=== PATIENT | female | born 1980 | race African-American/Black ===

== ENCOUNTER 2017-11-08 16:36 | Emergency (ER) | payer MEDICAID, MEDICARE ==
[~2017-11-08] VITALS: Ht 160 cm; Wt 103.8 kg
[~2017-11-08 16:36] MED LIST: PRED20 PO
[2017-11-08 16:46] VITALS: BP 159/85; PULSE 77; RESP 16; TEMP 99.2; O2SAT 97
--- NOTE | 2017-11-08 17:05 | PD ---
HPI Chief Complaint: Flank/Kidney Pain Time Seen by Provider: 16:56 Travel History International Travel<30 days: No Contact w/Intl Traveler<30days: No Traveled to known affect area: No History of Present Illness HPI This is a 37-year-old female who presents to the emergency department with left- sided flank pain, constant, moderate severity has been going on for 1 week, radiating into her left groin associated with some cloudy urine. She denies any fevers or chills. She has felt nauseous but has not vomited. She denies any vaginal discharge. [facility] Past Medical History Medical History: Denies Significant Hx High Cholesterol: Yes Diminished Hearing: No Influenza Vaccination: No ?: Not LMP: October Past Surgical History Surgical History: No Previous Surgery Social History Alcohol Use: No Tobacco Use: No Substance Use: No Allergies-Medications (Allergen,Severity, Reaction): Coded Allergies: No Known Allergies (Unverified Adverse Reaction, Unknown, 11/08/17) Reported Meds & Prescriptions Reported Meds & Active Scripts Active No Active Prescriptions or Reported Medications Review of Systems Except as stated in HPI: all other systems reviewed are Neg Physical Exam Narrative GENERAL:Well appearing, no acute distress SKIN: Focused skin assessment warm and dry. HEAD: Atraumatic. Normocephalic. EYES: Pupils equal and round. No injection or drainage. ENT: Moist mucous membranes NECK: Trachea midline. CARDIOVASCULAR: Regular rate and rhythm. No murmur appreciated. RESPIRATORY: Clear to auscultation. Breath sounds equal bilaterally. GASTROINTESTINAL: Abdomen soft, tender to palpation in the left upper and left lower quadrant with no rebound or guarding. : Left CVA tenderness. VIDEOTAPE EDITOR: cervix is normal in appearance, lumpy masses appreciated in the uterus MUSCULOSKELETAL: No obvious deformities. NEUROLOGICAL: Awake and alert. No obvious cranial nerve deficits. Moving all extremities. PSYCHIATRIC: Appropriate mood and affect; insight and judgment normal. Data Data Last Documented VS Vital Signs Date Time Temp Pulse Resp B/P (MAP) Pulse Ox O2 Delivery O2 Flow Rate FiO2 11/08/17 18:59 16 11/08/17 16:46 99.2 77 159/85 (109) 97 Orders Orders Complete Blood Count With Diff (11/08/17 17:03) Comprehensive Metabolic Panel (11/08/17 17:03) ^ Insert Iv (11/08/17 17:03) Ct Abd/Pel W/O Iv Contrast (11/08/17 ) Ed Urine Pregnancytest Poc (11/08/17 17:03) Ketorolac Inj (Toradol Inj) (11/08/17 17:15) Urinalysis - C+S If Indicated (11/08/17 17:58) Labs Laboratory Tests Test 11/08/17 17:20 11/08/17 18:30 White Blood Count 6.4 TH/MM3 Red Blood Count 4.62 MIL/MM3 Hemoglobin 12.7 GM/DL Hematocrit 37.7 % Mean Corpuscular Volume 81.6 FL Mean Corpuscular Hemoglobin 27.5 PG Mean Corpuscular Hemoglobin Concent 33.7 % Red Cell Distribution Width 13.5 % Platelet Count 315 TH/MM3 Mean Platelet Volume 7.7 FL Neutrophils (%) (Auto) 60.6 % Lymphocytes (%) (Auto) 30.4 % Monocytes (%) (Auto) 5.3 % Eosinophils (%) (Auto) 1.6 % Basophils (%) (Auto) 2.1 % Neutrophils # (Auto) 3.9 TH/MM3 Lymphocytes # (Auto) 2.0 TH/MM3 Monocytes # (Auto) 0.3 TH/MM3 Eosinophils # (Auto) 0.1 TH/MM3 Basophils # (Auto) 0.1 TH/MM3 CBC Comment DIFF FINAL Differential Comment Blood Urea Nitrogen 16 MG/DL Creatinine 0.76 MG/DL Random Glucose 97 MG/DL Total Protein 7.0 GM/DL Albumin 2.9 GM/DL Calcium Level 8.9 MG/DL Alkaline Phosphatase 68 U/L Aspartate Amino Transf (AST/SGOT) 23 U/L Alanine Aminotransferase (ALT/SGPT) 24 U/L Total Bilirubin 0.3 MG/DL Sodium Level 140 MEQ/L Potassium Level 4.5 MEQ/L Chloride Level 109 MEQ/L Carbon Dioxide Level 27.3 MEQ/L Anion Gap 4 MEQ/L Estimat Glomerular Filtration Rate 105 ML/MIN Urine Color YELLOW Urine Turbidity SL CLOUDY Urine pH 7.5 Urine Specific [place] 1.020 Urine Protein TRACE mg/dL Urine Glucose (UA) NEG mg/dL Urine Ketones NEG mg/dL Urine Occult Blood SMALL Urine Nitrite NEG Urine Bilirubin NEG Urine Urobilinogen 0.2 MG/DL Urine Leukocyte Esterase NEG Urine RBC 10-14 /hpf Urine WBC 0-2 /hpf Urine Squamous Epithelial Cells > 8 /hpf Urine Bacteria FEW /hpf Microscopic Urinalysis Comment CULT NOT INDICATED MDM Medical Decision Making Medical Screen Exam Complete: Yes Emergency Medical Condition: Yes Interpretation(s) afebrile, no tachycardia, hypertension No leukocytosis Electrolytes are reassuring Urinalysis demonstrates some blood in the urine Last 24 hours Impressions Abdomen/Pelvis CT 11/08/17 0000 Signed Impressions: Service Date/Time: Wednesday, November 08, 2017 17:55 - CONCLUSION: 1. No acute findings. Negative for obstructive uropathy. Probable fibroid uterus. Andi Fonseca MD Differential Diagnosis Pyelonephritis, kidney stone, fibroid uterus, malignancy Narrative Course This is a 37 year old female who presents to the emergency department with left sided flank pain. Pt. was placed on a monitor and an IV was established. Labs are reassuring. Pt. does have some hematuria, but no obvious infection. CT demonstrates large uterus and masses are appreciated on pelvic exam. I suspect her pain is related to a fibroid uterus. Pt. was advised to follow up with gynecology as she needs to be evaluated for possible malignancy as her mother has a history of uterine cancer. Pt. is otherwise appropriate for discharge. Diagnosis Primary Impression: Large uterus Patient Instructions: General Instructions Additional Instructions: If you develop severe abdominal pain, lightheadedness or dizziness return to the emergency department. Follow up with your primary pit worker power shovel as soon as possible as the masses in your uterus need to be evaluated and your urine should be rechecked to ensure there is no blood. Med/Other Pt SpecificInfo: Prescription(s) given Scripts Naproxen (Naproxen) 500 Mg Tab 500 MG PO BID Y for PAIN SCALE 4 TO 10, #20 TAB 0 Refills Prov: Maureen Ricketts MD 11/08/17 Disposition: DISCHARGE HOME Condition: Stable Maureen Ricketts MD November 08, 2017 17:05
[2017-11-08] MEDS ORDERED: KETOROLAC TROMETHAMINE 30 MG/ML (IVP) VIAL IV PUSH ONE (17:15)
[2017-11-08 17:33] LABS: AUTOMATED NEUTROPHIL # 3.9 TH/MM3 (1.8-7.7); BASOPHIL # 0.1 TH/MM3 (0-0.2); BASOPHIL % 2.1 % (0.0-2.0); EOSINOPHIL # 0.1 TH/MM3 (0-0.4); EOSINOPHIL % 1.6 % (0.0-4.0); HEMATOCRIT 37.7 % (35.0-46.0); HEMOGLOBIN 12.7 GM/DL (11.6-15.3); LYMPH % 30.4 % (9.0-44.0); MEAN CELL VOLUME 81.6 FL (80.0-100.0); MEAN CORPUSCULAR HEMOGLOBIN 27.5 PG (27.0-34.0); MEAN CORPUSCULAR HGB CONC 33.7 % (32.0-36.0); MEAN PLATELET VOLUME 7.7 FL (7.0-11.0); MONO % 5.3 % (0.0-8.0); MONOCYTE # 0.3 TH/MM3 (0-0.9); NEUT % 60.6 % (16.0-70.0); PLATELET COUNT 315 TH/MM3 (150-450); RED BLOOD COUNT 4.62 MIL/MM3 (4.00-5.30); RED CELL DISTRIBUTION WIDTH 13.5 % (11.6-17.2); WHITE BLOOD COUNT 6.4 TH/MM3 (4.0-11.0)
[2017-11-08 17:39] LABS: CHLORIDE 109 MEQ/L (98-107); SODIUM (NA) 140 MEQ/L (136-145)
[2017-11-08 17:42] LABS: ALBUMIN 2.9 GM/DL (3.4-5.0); BICARBONATE 27.3 MEQ/L (21.0-32.0); CALCIUM 8.9 MG/DL (8.5-10.1); GLUCOSE,RANDOM 97 MG/DL (74-106)
[2017-11-08 17:43] LABS: BLOOD UREA NITROGEN 16 MG/DL (7-18)
[2017-11-08 17:45] LABS: ALT (GPT) 24 U/L (10-53); AST (GOT) 23 U/L (15-37)
[2017-11-08 17:46] LABS: CREATININE 0.76 MG/DL (0.50-1.00); GLOMERULAR FILTRATION RATE 105 ML/MIN (>89)
[2017-11-08 17:47] LABS: TOTAL BILIRUBIN ADULT 0.3 MG/DL (0.2-1.0)
[2017-11-08 17:48] LABS: ALKALINE PHOSPHATASE 68 U/L (45-117)
[2017-11-08 18:00] VITALS: BP 140/82; PULSE 72; RESP 16; O2SAT 97
--- NOTE | 2017-11-08 18:31 | RADRPT ---
EXAM DATE/TIME: 11/08/2017 17:55 [facility] COMPARISON: No previous studies available for comparison. INDICATIONS : Left flank pain. ORAL CONTRAST: No oral contrast ingested. RADIATION DOSE: 22.58 CTDIvol (mGy) MEDICAL HISTORY : Hypercholesterolemia. SURGICAL HISTORY : None. ENCOUNTER: Initial ACUITY: 1 week PAIN SCALE: 6/10 LOCATION: Left flank TECHNIQUE: Volumetric scanning of the abdomen and pelvis was performed. Using automated exposure control and ad justment of the mA and/or kV according to patient size, radiation dose was kept as low as reasonably achievable to obtain optimal diagnostic quality images. DICOM format image data is available electro nically for review and comparison. FINDINGS: The lower lung bases are clear. No acute findings in the liver, spleen, adrenals or pancreas. No defi nite renal or ureteral calculi. No bladder calculi. Uterus is enlarged and slightly lobulated, probab ly fibroid involvement. CONCLUSION: 1. No acute findings. Negative for obstructive uropathy. Probable fibroid uterus. Andi Fonseca MD on November 08, 2017 at 18:26 Board Certified Radiologist. This report was verified electronically.
[2017-11-08 18:45] LABS: BILIRUBIN, URINE NEG (NEG); BLOOD, URINE SMALL (NEG); GLUCOSE,URINE NEG (NEG); KETONE, URINE NEG (NEG); NITRITE,URINE NEG (NEG); PH, URINE 7.5 (5.0-8.5); URINE COLOR YELLOW (YELLW/STRAW); URINE LEUKOCYTE ESTERASE NEG (NEG)
[2017-11-08 18:54] LABS: BACTERIA, URINE FEW /hpf; SQUAMOUS EPITHELIAL CELL URINE > 8 /hpf (0-5); WBC, URINE 0-2 /hpf (0-5)
[2017-11-08 19:10] VITALS: BP 136/86; PULSE 70; RESP 16; O2SAT 98
[2017-11-08] MEDS ORDERED: NAPR500T2 PO (19:14)
== END 2017-11-08 19:45 | disposition home or self-care (01) ==
LOC: PHED 16:36
DX: N85.2 Hypertrophy of uterus (principal); R31.9 Hematuria, unspecified; E78.00 Pure hypercholesterolemia, unspecified
CPT/HCPCS: 74176; 80053; 81001; 84703; 85025; 96374; 99284; J1885